=== PATIENT | male | born 1995 | race Caucasian/White ===

== ENCOUNTER 2021-03-12 00:53 | Emergency (ER) | payer OTHER ==
[2021-03-12] MEDS ORDERED: CYCLOBENZAPRINE 10 MG TABLET PO STA (01:44)
[2021-03-12] MEDS ORDERED: traMADol 50 MG TABLET PO STA (01:45)
--- NOTE | 2021-03-12 01:48 | ED Physician Documentation ---
PD HPI BACK PAIN - Stated complaint Stated Complaint: BACK PX - Chief complaint Chief Complaint: Back Pain - History obtained from History obtained from: Patient - History of Present Illness Timing - onset: Today Timing - details: Gradual onset, Constant, Waxing and waning Pain level now: 8 Location: Mid, Left Quality: Pain, Spasm, Sharp Associated symptoms: No: Fever, Weakness, Numbness, Incontinent of urine, Unable to urinate, Hematuria, Incontinent of stool Improves with: Nothing Worsened by: Palpation Similar symptoms before: Has not had sx before - Additional information Additional information: c/o atraumatic left lower parathoracic pain since this morning but becoming severe this evening. He says he has some degree of chronic back pain, but this i s much worse than any previous pain he has had and he is not even confident this has anything to do with previous episodes of back pain hes had. Denies weakness, numbness, continence issues, fever. He says he has a physically demanding job although hasnt done anything unusual from his average day recently. Review of Systems Constitutional: reports: Reviewed and negative Cardiac: reports: Reviewed and negative Respiratory: reports: Reviewed and negative GI: reports: Reviewed and negative : denies: Hematuria Skin: denies: Rash Musculoskeletal: reports: Back pain. denies: Extremity swelling Neurologic: reports: Reviewed and negative PD PAST MEDICAL HISTORY - Past Medical History Past Medical History: Yes Musculoskeletal: Chronic back pain - Past Surgical History Past Surgical History: No - Present Medications Home Medications: Ambulatory Orders Medication Instructions Recorded Confirmed Cyclobenzaprine [Flexeril] 10 mg PO TID PRN #20 tablet 03/12/21 traMADol [Ultram] 50 mg PO Q6H PRN #14 tablet 03/12/21 - Allergies Allergies/Adverse Reactions: Allergies Allergy/AdvReac Type Severity Reaction Status Date / Time amoxicillin Allergy Hives Verified 03/12/21 00:58 - Social History Does the pt smoke?: No Smoking Status: Never smoker Does the pt drink ETOH?: Yes Does the pt have substance abuse?: No - Immunizations Immunizations are current?: Yes PD ED PE NORMAL - Vitals Vital signs reviewed: Yes - General General: Alert and oriented X 3, No acute distress, Well developed/nourished - Cardiac Cardiac: RRR, No murmur - Respiratory Respiratory: No respiratory distress, Clear bilaterally - Abdomen Abdomen: Soft, Non tender, Non distended - Back Back: No CVA TTP, No spinal TTP, Other (TTP left parathoracic area in posterior mid clavicular line; no crepitus, no derm abnormalities (no erythema, rash, hot to touch, swelling). ) - Derm Derm: No rash - Extremities Extremities: No edema Results - Vitals Vitals: Oxygen O2 Source Room air PD MEDICAL DECISION MAKING - ED course Complexity details: considered differential, d/w patient ED course: Atraumatic parathoracic pain which is distinctly reproducible with palpation. PERC criteria are all negative. There is a pleuritic component but he denies feeling short of breath and his pulse ox is 99% with clear lung sounds bilaterally; spontaneous pneumothorax is thus very unlikely (also, pain is reproduced with palpation). no fever, cough to suggest respiratory infectious etiology and no derm findings (such as erythema, swelling, fluctuance) to suggest skin-related infection (such as abscess, cellulitis). His age makes pathologic fracture too unlikely to warrant study at this time, but simple plain films could be considered if symptoms persists despite rest and appropriate use of the provided prescriptions. He has no midline/vertebral tenderness. No rash and has not had chicken pox (this precludes zoster). I am prescribing a short course of short-acting opioid pain medication for this patient. I have reviewed the patients [employer] and no concerning findings were noted. I have discussed that the opioids are for short term therapy only, and will not be refilled from the ED. Departure - Departure Disposition: 01 Home, Self Care Clinical Impression: Back pain Qualifiers: Back pain location: thoracic back pain Chronicity: acute Back pain laterality: left Qualified Code(s): M54.6 - Pain in thoracic spine Condition: Good Instructions: ED Spasm Back No Trauma, ED Neck Back Pain General Follow-Up: [facility] [Provider Group] Prescriptions: Cyclobenzaprine [Flexeril] 10 mg PO TID PRN #20 tablet PRN Reason: Spasms traMADol [Ultram] 50 mg PO Q6H PRN #14 tablet PRN Reason: Pain Comments: Prescriptions for tramadol (pain medication) and cyclobenzaprine (muscle relaxant) were submitted to [email or web address]. I am prescribing a short course of narcotic pain medication for you. These are potentially dangerous and addictive medications that should be used carefully. These medications may constipate you. Take an [id number] stool softener (docusate) twice daily with plenty of water while taking these medications. If you go 24 hours without a bowel movement, take [id number] miralax, per package instructions. Do not drink or drive while taking these medications. If you received narcotic or sedating medications while in the emergency department, do not drive for 24 hours. Store this medication in a safe, secure place and out of reach of children. It is a violation of federal law to give or sell this medication to another person or to use in a manner other than prescribed. The ED will not refill narcotic prescriptions, including prescriptions lost or stolen. To dispose of unwanted medications: 1. [facility] [address] in [place] has a medication drop box. They accept prescription medications (in pill form) Wednesday through Wednesday 9:00 a.m. to 5:00 p.m. 2. The [facility] [employer] accepts prescription medications (in pill form only) for disposal year round. Call for more information. 3. Contact the [facility] for the next [facility] sponsored prescription drug collection event. , [phone], or [phone]; Discharge Date/Time: 03/12/21 02:14
[2021-03-12 01:54] VITALS: BP 139/79
== END 2021-03-12 02:14 | disposition home or self-care (01) ==
LOC: ED 00:53
DX: M54.6 Pain in thoracic spine (principal); G89.29 Other chronic pain
CPT/HCPCS: 99282; 99283; A9270